=== PATIENT | female | born 1985 | race Caucasian/White ===

== ENCOUNTER 2017-08-26 16:33 | Emergency (ER) | payer BC, MEDICAID ==
--- NOTE | 2017-08-26 17:09 | EDM.PDOC ---
ED HPI GENERAL MEDICAL PROBLEM - General Chief Complaint: UNDER PRESSER Problem Stated Complaint: 15 WEEKS/CRAMPING Time Seen by Provider: 08/26/17 16:44 Source of Information: Reports: Patient History Limitations: Reports: No Limitations - History of Present Illness INITIAL COMMENTS - FREE TEXT/NARRATIVE: HISTORY AND PHYSICAL: History of present illness: Patient is a 32-year-old female who presents to the emergency room today with complaints of abdominal pain and cramping. She is currently 15 weeks and has had adequate OB care prior to today. Her UNDER PRESSER is in [facility]. All of her previous labs and OB checks have been normal. States that this she started to notice mild cramping without any vaginal discharge or bleeding. Decided she wanted to be evaluated in the emergency room as it has progressively come stronger. Denies any recent sexual activity. Denies any nausea, vomiting, diarrhea. 3 para 2 -previous deliveries were normal. Review of systems: As per history of present illness and below otherwise all systems reviewed and negative. Past medical history: As per history of present illness and as reviewed below otherwise noncontributory. Surgical history: As per history of present illness and as reviewed below otherwise noncontributory. Social history: No reported history of drug or alcohol abuse. Family history: As per history of present illness and as reviewed below otherwise noncontributory. Physical exam: Gen.: Nontoxic-appearing 32-year-old female. Alert and oriented. Well-developed and well-nourished. HEENT: Atraumatic, normocephalic, pupils reactive, negative for conjunctival pallor or scleral icterus, mucous membranes moist, throat clear, neck supple, nontender, trachea midline. Lungs: Clear to auscultation, breath sounds equal bilaterally, chest nontender. Heart: S1S2, regular, negative for clicks, rubs, or JVD. Abdomen: Soft, nondistended, nontender. Negative for masses or hepatosplenomegaly. Negative for costovertebral tenderness. Pelvis: Stable nontender. Genitourinary: Deferred. Rectal: Deferred. Extremities: Atraumatic, negative for cords or calf pain. Neurovascular unremarkable. Neuro: Awake, alert, oriented. Cranial nerves II through XII unremarkable. Cerebellum unremarkable. Motor and sensory unremarkable throughout. Exam nonfocal. Diagnostics: CBC, CMP, UA, OB ultrasound Therapeutics: [] Impression: Abdominal pain in second trimester Plan: 1. Please inform your UNDER PRESSER that you were seen in the emergency room today for abdominal pain and cramping. Her labs today are unremarkable and her ultrasound shows an intrauterine . Would advise pelvic rest until otherwise notified by your primary care provider. 2. Follow-up with your primary UNDER PRESSER in the next 1-2 days. Return to the ED as needed and as discussed Definitive disposition and diagnosis as appropriate pending reevaluation and review of above. Onset Date: 08/20/17 abdomen Pain Score (Numeric/FACES): 5 - Related Data Allergies Allergy/AdvReac Type Severity Reaction Status Date / Time adhesive Allergy Rash Verified 07/09/16 09:01 ampicillin Allergy Rash Verified 07/09/16 09:01 grass pollen Allergy Airway Verified 07/09/16 09:01 Tightness raw fruits and vegetables Allergy Airway Uncoded 07/09/16 09:01 Tightness Home Meds: Home Meds Calcium Carbonate [Calcium] 500 mg PO BID 08/26/17 [History] Calcium Carbonate/Vitamin D3 [Oyster Shell Calcium-Vit D Tab] 1 each PO BID 06/04 [History] FLUoxetine [PROzac] 10 mg PO BEDTIME 08/26/17 [History] #103/Iron Fumarate/Fa [ ] 1 tab PO DAILY 08/26/17 [ History] Past Medical History - Past Health History Medical/Surgical History: Denies Medical/Surgical History HEENT History: Reports: Allergic Rhinitis Other HEENT History: wears glasses Cardiovascular History: Reports: None Respiratory History: Reports: Asthma Gastrointestinal History: Reports: None Genitourinary History: Reports: None UNDER PRESSER History: Reports: Musculoskeletal History: Reports: Fracture Other Musculoskeletal History: tailbone Neurological History: Reports: Migraines Psychiatric History: Reports: Depression Endocrine/Metabolic History: Reports: Obesity/BMI 30+, Other (See Below) Other Endocrine/Metabolic History: hypoglycemia Hematologic History: Reports: None Immunologic History: Reports: None Oncologic (Cancer) History: Reports: None Dermatologic History: Reports: None - Past Surgical History Head Surgeries/Procedures: Reports: None Cardiovascular Surgical History: Reports: None Respiratory Surgical History: Reports: None GI Surgical History: Reports: None Female Surgical History: Reports: Section Endocrine Surgical History: Reports: None Neurological Surgical History: Reports: None Musculoskeletal Surgical History: Reports: None, Other (See Below) Other Musculoskeletal Surgeries/Procedures:: knee sx Oncologic Surgical History: Reports: None Dermatological Surgical History: Reports: None Social & Family History - Family History Family Medical History: Noncontributory - Tobacco Use Smoking Status *Q: Never Smoker - Caffeine Use Caffeine Use: Reports: Coffee Caffeine Use Comment: 1 cup daily - Recreational Drug Use Recreational Drug Use: No Drug Use in Last 12 Months: No ED ROS GENERAL - Review of Systems Review Of Systems: ROS reveals no pertinent complaints other than HPI. ED EXAM - Physical Exam Exam: See Below (See dictation) Course - Vital Signs Last Recorded V/S: Last Vital Signs Temp 36.3 C 08/26/17 16:33 Pulse 63 08/26/17 16:33 Resp 18 08/26/17 16:33 BP 116/64 08/26/17 16:33 Pulse Ox 99 08/26/17 16:33 - Orders/Labs/Meds Orders: Active Orders 24 hr Category Date Time Status OB Transvaginal [US] Stat Exams 08/26/17 17:02 Taken Labs: Laboratory Tests 08/26/17 08/26/17 08/26/17 Range/Units 17:03 17:18 17:18 WBC 8.70 (4.0-11.0) K/uL RBC 4.17 L (4.30-5.90) M/uL Hgb 12.9 (12.0-16.0) g/dL Hct 38.1 (36.0-46.0) % MCV 91.4 (80.0-98.0) fL MCH 30.9 (27.0-32.0) pg MCHC 33.9 (31.0-37.0) g/dL RDW Std Deviation 42.7 (28.0-62.0) fl RDW Coeff of Gabriela 13 (11.0-15.0) % Plt Count 197 (150-400) K/uL MPV 9.30 (7.40-12.00) fL Neut % (Auto) 65.2 (48.0-80.0) % Lymph % (Auto) 27.7 (16.0-40.0) % [place] % (Auto) 5.9 (0.0-15.0) % Eos % (Auto) 1.0 (0.0-7.0) % Baso % (Auto) 0.2 (0.0-1.5) % Neut # (Auto) 5.7 (1.4-5.7) K/uL Lymph # (Auto) 2.4 (0.6-2.4) K/uL [place] # (Auto) 0.5 (0.0-0.8) K/uL Eos # (Auto) 0.1 (0.0-0.7) K/uL Baso # (Auto) 0.0 (0.0-0.1) K/uL Nucleated RBC % 0.0 /100WBC Nucleated RBCs # 0 K/uL Sodium 137 (136-146) mmol/L Potassium 3.6 (3.5-5.1) mmol/L Chloride 106 (98-110) mmol/L Carbon Dioxide 24 (21-31) mmol/L BUN 9 (6.0-23.0) mg/dL Creatinine 0.7 (0.6-1.5) mg/dL Est Cr Clr Drug Dosing 119.46 mL/min Estimated GFR (MDRD) > 60.0 ml/min Glucose 75 (60-110) mg/dL Calcium 8.8 (8.8-10.8) mg/dL Total Bilirubin 0.2 (0.1-1.5) mg/dL AST 15 (5-40) IU/L ALT 17 (8-54) IU/L Alkaline Phosphatase 52 (40-150) Total Protein 6.6 (6.0-8.0) g/dL Albumin 3.5 (3.5-5.0) g/dL Globulin 3.1 (2.0-3.5) g/dL Albumin/Globulin Ratio 1.1 L (1.3-2.8) Urine Color YELLOW Urine Appearance CLEAR Urine pH 6.0 (5.0-8.0) Ur Specific Yoder 1.010 (1.001-1.035) Urine Protein NEGATIVE (NEGATIVE) mg/dL Urine Glucose (UA) NEGATIVE (NEGATIVE) mg/dL Urine Ketones NEGATIVE (NEGATIVE) mg/dL Urine Occult Blood TRACE-INTACT (NEGATIVE) Urine Nitrite NEGATIVE (NEGATIVE) Urine Bilirubin NEGATIVE (NEGATIVE) Urine Urobilinogen 0.2 (<2.0) EU/dL Ur Leukocyte Esterase TRACE (NEGATIVE) Urine RBC 0-1 (0-2/HPF) Urine WBC 0-3 (0-5/HPF) Ur Epithelial Cells FEW (NONE-FEW) Urine Bacteria FEW (NEGATIVE) Departure - Departure Time of Disposition: 18:34 Disposition: Home, Self-Care 01 Clinical Impression: Abdominal pain during in second trimester - Discharge Information Referrals: PCP,None [Primary Care Provider] - Forms: ED Department Discharge Additional Instructions: My general discharge The following information is given to patients seen in the emergency department who are being discharged to home. This information is to outline your options for follow-up care. We provide all patients seen in our emergency department with a follow-up referral. The need for follow-up, as well as the timing and circumstances, are variable depending upon the specifics of your emergency department visit. If you don't have a primary care physician on staff, we will provide you with a referral. We always advise you to contact your personal physician following an emergency department visit to inform them of the circumstance of the visit and for follow-up with them and/or the need for any referrals to a consulting specialist. The emergency department will also refer you to a specialist when appropriate. This referral assures that you have the opportunity for follow-up care with a specialist. All of these measure are taken in an effort to provide you with optimal care, which includes your follow-up. Under all circumstances we always encourage you to contact your private physician who remains a resource for coordinating your care. When calling for follow-up care, please make the office aware that this follow-up is from your recent emergency room visit. If for any reason you are refused follow-up, please contact the [facility] Emergency Department at and asked to speak to the emergency department charge nurse. [facility] Primary Care - Women's Health [address] [place] [id number] 1. Please inform your UNDER PRESSER that you were seen in the emergency room today for abdominal pain and cramping. Her labs today are unremarkable and her ultrasound shows an intrauterine . Would advise pelvic rest until otherwise notified by your primary care provider. 2. Follow-up with your primary UNDER PRESSER in the next 1-2 days. Return to the ED as needed and as discussed - My Orders Last 24 Hours: My Active Orders 08/26/17 17:02 OB Transvaginal [US] Stat - Assessment/Plan Last 24 Hours: My Active Orders 08/26/17 17:02 OB Transvaginal [US] Stat
[2017-08-26 17:57] LABS: CHLORIDE,CL 106 mmol/L (98-110); SODIUM,NA 137 mmol/L (136-146)
[2017-08-26 18:53] VITALS: BP 106/62
--- NOTE | 2017-08-27 12:56 | US ---
EXAM DATE: 08/26/17 PATIENT'S AGE: 32 Patient: RODERICK BOO Facility: [place], [place] Site . Site : 1985 Study: US OB Pelvis [id number]/8/2017 6:20:07 PM Ordering Physician: Doctor De Los Santos Final Report: INDICATION: Cramping TECHNIQUE: Ultrasound OB pelvis transabdominal. Real time camacho scale imaging of the fetus was performed as well as color Doppler and spectral Doppler analysis of the umbilical artery. COMPARISON: None FINDINGS: LMP: 05/14/2017 Gestational age by LMP: 14 weeks 6 days Estimated due date by LMP: 02/18/2018 Sonographic imaging demonstrates a single living intrauterine gestation. Fetus demonstrates a regular cardiac rate of 146 beats per minute. The placenta lies posterior without evidence of placenta previa. Amniotic fluid volume appears normal MARCELLE not measured. Cervix measures 3.89 centimeters in length. The composite ultrasound gestational age is calculated at 15 weeks 2 days with an estimated sonographic due date of 02/15/2018. The estimated weight is 114 grams. The following biometric measurements were obtained: Biparietal diameter: 2.8 centimeters consistent with gestational age of 15 weeks 1 day Head circumference: 10.65 centimeters consistent with gestational age of 15 weeks 1 day Abdominal circumference: 8.62 centimeters consistent with gestational age of 15 weeks 0 days Femur length: 1.76 centimeters consistent with gestational age of 15 weeks 2 days Anatomical survey not requested. IMPRESSION: Single intrauterine with a composite gestational age by ultrasound evaluation of 15 weeks 2 days. This compares the gestational age by LMP of 14 weeks 6 days. heart rate 146 beats per minute. No gross abnormalities. Dictated by Pool Hyman MD @ 08/26/2017 6:40:22 PM Dictated by: Pool Hyman MD @ 08/26/2017 18:40:42 (Electronic Signature) Report Signed by Proxy. NATALIE
== END 2017-08-26 18:53 | disposition home or self-care (01) ==
LOC: MW.ED 16:33
DX: O99.89 Other specified diseases and conditions complicating pregnancy, childbirth and the puerperium (principal); R10.9 Unspecified abdominal pain; O99.342 Other mental disorders complicating pregnancy, second trimester; F32.9 Major depressive disorder, single episode, unspecified; Z88.1 Allergy status to other antibiotic agents; Z91.018 Allergy to other foods; Z91.048 Other nonmedicinal substance allergy status; Z3A.15 15 weeks gestation of pregnancy
CPT/HCPCS: 36415; 76817; 76817-26; 80053; 81001; 85025; 99283; 99284-25

== ENCOUNTER 2018-02-11 05:33 | Inpatient (IN) | payer BC ==
[2018-02-11] MEDS ORDERED: Sodium Chloride 0.9% 10 ML Syringe FLUSH PRN (06:09)
[2018-02-11] MEDS ORDERED: Sodium Chloride 0.9% 2.5 ML Syringe FLUSH PRN (06:09)
[2018-02-11] MEDS ORDERED: ceFAZolin 2 GM in Premix Bag 1 BAG IV ONE (06:09)
[2018-02-11] MEDS ORDERED: Oxytocin/0.9 % Sodium Chloride 30 UNIT/500 ML BAG IV SCH (06:15)
[2018-02-11] MEDS ORDERED: Citric Acid/Sodium Citrate Solution 30 ML Cup PO ONE (06:15)
[2018-02-11] MEDS: Lactated Ringers 1,000 ML IV SCH ×2 (06:20→07:25)
[2018-02-11] MEDS ORDERED: Octyl 2-Cyanoacrylate 1 Tube ONE (07:18)
[2018-02-11] MEDS ORDERED: Ondansetron 4 MG/2 ML SDV ONE (07:23)
[2018-02-11] MEDS ORDERED: Morphine PF 1 MG/ML Amp ONE (07:24)
[2018-02-11] MEDS ORDERED: ceFAZolin/Dextrose,Iso-Osmotic 2 GM/50 ML Duplex Bag IV ONE (07:24)
[2018-02-11] MEDS ORDERED: Oxytocin/0.9 % Sodium Chloride 30 UNIT/500 ML BAG ONE (07:45)
--- NOTE | 2018-02-11 08:04 | PCM.PREANE ---
Preanesthetic Assessment - Anesthesia/Transfusion/Family Hx Anesthesia History: Prior Anesthesia Without Reaction Transfusion History: No Prior Transfusion(s) - Review of Systems General: No Symptoms Pulmonary: No Symptoms Cardiovascular: No Symptoms Gastrointestinal: No Symptoms Neurological: No Symptoms Other: Reports: None - Physical Assessment NPO Status Date: 02/10/18 Height: 1.75 m Weight: 127.913 kg ASA Class: 2 Airway Class: Mallampati = 2 Dentition: Reports: Normal Dentition ROM/Head Extension: Full Lungs: Clear to Auscultation, Normal Respiratory Effort Cardiovascular: Regular Rate, Regular Rhythm - Lab Values: Laboratory Last Values WBC 9.90 K/uL (4.0-11.0) 02/10/18 09:45 RBC 4.03 M/uL (4.30-5.90) L 02/10/18 09:45 Hgb 12.1 g/dL (12.0-16.0) 02/10/18 09:45 Hct 35.7 % (36.0-46.0) L 02/10/18 09:45 MCV 88.6 fL (80.0-98.0) 02/10/18 09:45 MCH 30.0 pg (27.0-32.0) 02/10/18 09:45 MCHC 33.9 g/dL (31.0-37.0) 02/10/18 09:45 RDW Std Deviation 43.5 fl (28.0-62.0) 02/10/18 09:45 RDW Coeff of Gabriela 14 % (11.0-15.0) 02/10/18 09:45 Plt Count 176 K/uL (150-400) 02/10/18 09:45 MPV 10.00 fL (7.40-12.00) 02/10/18 09:45 Nucleated RBC % 0.0 /100WBC 02/10/18 09:45 Nucleated RBCs # 0 K/uL 02/10/18 09:45 Blood Type A NEGATIVE 02/10/18 09:45 Antibody Screen NEGATIVE 02/10/18 09:45 - Allergies Allergies/Adverse Reactions: Allergies Allergy/AdvReac Type Severity Reaction Status Date / Time ampicillin Allergy Rash Verified 02/08/18 10:55 grass pollen Allergy Airway Verified 02/08/18 10:55 Tightness lactose Allergy Stomach Verified 02/08/18 10:55 Upset raw fruits and vegetables Allergy Airway Uncoded 07/09/16 09:01 Tightness - Anesthesia Plan Pre-Op Medication Ordered: Antacids - Acknowledgements Anesthesia Type Planned: Spinal Pt an Appropriate Candidate for the Planned Anesthesia: Yes Alternatives and Risks of Anesthesia Discussed w Pt/Guardian: Yes Pt/Guardian Understands and Agrees with Anesthesia Plan: Yes PreAnesthesia Questionnaire - Past Health History Medical/Surgical History: Denies Medical/Surgical History HEENT History: Reports: Allergic Rhinitis, Other (See Below) Other HEENT History: wears glasses Cardiovascular History: Reports: None Respiratory History: Reports: Asthma Gastrointestinal History: Reports: Other (See Below) Other Gastrointestinal History: heartburn during Genitourinary History: Reports: None 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: Musculoskeletal History: Reports: Fracture Other Musculoskeletal History: tailbone Neurological History: Reports: Migraines Psychiatric History: Reports: Depression Endocrine/Metabolic History: Reports: Obesity/BMI 30+, Other (See Below) Other Endocrine/Metabolic History: hypoglycemia Hematologic History: Reports: Anemia Immunologic History: Reports: None Oncologic (Cancer) History: Reports: None Dermatologic History: Reports: None - Past Surgical History Head Surgeries/Procedures: Reports: None HEENT Surgical History: Reports: None Cardiovascular Surgical History: Reports: None Respiratory Surgical History: Reports: None GI Surgical History: Reports: None Female Surgical History: Reports: Section Endocrine Surgical History: Reports: None Neurological Surgical History: Reports: None Musculoskeletal Surgical History: Reports: Arthroscopic Knee, Other (See Below) Other Musculoskeletal Surgeries/Procedures:: knee scope, excision of mass to rt ankle Oncologic Surgical History: Reports: None Dermatological Surgical History: Reports: None - SUBSTANCE USE Smoking Status *Q: Former Smoker Tobacco Use Within Last Twelve Months: Cigarettes Second Hand Smoke Exposure: No Recreational Drug Use History: No - HOME MEDS Home Medications: Home Meds Calcium Carbonate/Vitamin D3 [Oyster Shell Calcium-Vit D Tab] 1 each PO BID 06/04 [History] FLUoxetine [PROzac] 10 mg PO BEDTIME 08/26/17 [History] #103/Iron Fumarate/Fa [ ] 1 tab PO DAILY 08/26/17 [ History] Albuterol [Ventolin HFA] 2 puff INH ASDIRECTED PRN 02/08/18 [History] Magnesium Oxide [Magnesium] 1 tab PO BID 02/08/18 [History] - CURRENT (IN HOUSE) MEDS Current Meds: Current Medications Lactated Ringer's (Ringers, Lactated) 1,000 mls @ 500 mls/hr IV .BOLUS DANAY Last Admin: 02/11/18 07:25 Dose: 500 mls/hr Oxytocin/Sodium Chloride (Oxytocin 30 Unit/500 Ml-Ns) 30 unit in 500 mls @ 250 mls/hr IV TITRATE DANAY Sodium Chloride (Saline Flush) 10 ml FLUSH ASDIRECTED PRN PRN Reason: Keep Vein Open Sodium Chloride (Saline Flush) 2.5 ml FLUSH ASDIRECTED PRN PRN Reason: Keep Vein Open Discontinued Medications Cefazolin Sodium/Dextrose (Ancef) Confirm Administered Dose 2 gm IV .STK-MED ONE Stop: 02/11/18 07:25 Citric Acid/Sodium Citrate (Bicitra Solution) 30 ml PO ONETIME ONE Stop: 02/11/18 06:16 Last Admin: 02/11/18 07:51 Dose: 30 ml Cefazolin Sodium/Dextrose 2 gm (/ Premix) 50 mls @ 100 mls/hr IV ONETIME ONE Stop: 02/11/18 06:38 Oxytocin/Sodium Chloride (Oxytocin 30 Unit/500 Ml-Ns) Confirm Administered Dose 30 unit in 500 mls @ as directed .ROUTE .STK-MED ONE Stop: 02/11/18 07:46 Morphine Sulfate (Duramorph Pf) Confirm Administered Dose 1 mg .ROUTE .STK-MED ONE Stop: 02/11/18 07:25 Octyl Cyanoacrylate (Dermabond Advance) Confirm Administered Dose 1 applic .ROUTE .STK-MED ONE Stop: 02/11/18 07:19 Ondansetron HCl (Zofran) Confirm Administered Dose 4 mg .ROUTE .STK-MED ONE Stop: 02/11/18 07:24
[2018-02-11] MEDS ORDERED: ePHEDrine 50 MG/ML SDV ONE (08:14)
[2018-02-11] MEDS ORDERED: Phenylephrine/Normal Saline 100 MCG/ML 10 ML Syringe ONE (08:14)
[2018-02-11] MEDS ORDERED: Methylergonovine 0.2 MG/1 ML Amp ONE (08:19)
[2018-02-11] MEDS ORDERED: Oxytocin 10 Units/1 ML SDV ONE (08:50)
[2018-02-11] MEDS ORDERED: Bisacodyl 10 MG Supp RECTAL PRN (08:55)
[2018-02-11] MEDS ORDERED: Ondansetron 4 MG/2 ML SDV IV PRN (08:55)
[2018-02-11] MEDS ORDERED: Methylergonovine 0.2 MG/1 ML Amp IM PRN (08:55)
[2018-02-11] MEDS ORDERED: Lanolin 100% Cream 7 GM Tube TOP PRN (08:55)
[2018-02-11] MEDS ORDERED: diphenhydrAMINE 50 MG/ML SDV IVPUSH PRN ×2 (08:55→18:19)
[2018-02-11] MEDS ORDERED: Lactated Ringers 1,000 ML IV SCH (09:00)
--- NOTE | 2018-02-11 09:00 | PCM.OPNOTE ---
- General Post-Op/Procedure Note Date of Surgery/Procedure: 02/11/18 Operative Procedure(s): RLTCS with bilateral salpingectomy (approved) Findings: Viable female, apgars 8 & 9, weight: 4000 g, delivery of intact 3V cord & placenta. Pre Op Diagnosis: Repeat , desires sterilization Post-Op Diagnosis: same Anesthesia Technique: Spinal Primary Surgeon: Tamika Melton Cash Surrender Calculator: Mahnaz Lynch Fluid Replacement, Intraop: 2,000 Output, Urine Amount: 300 EBL in mLs: 700 Condition: Stable
--- NOTE | 2018-02-11 09:08 | PCM.OPNOTE ---
- General Post-Op/Procedure Note Date of Surgery/Procedure: 02/11/18 Operative Procedure(s): RLTSC, bilateral salpingectomy (approved) Findings: viable female, apgars 8 & 9, weight: 4000 g, delivery of intact 3V cord & placenta. Pre Op Diagnosis: 39 week intrauterine , repeat , desires sterilization. Post-Op Diagnosis: same Anesthesia Technique: Spinal Primary Surgeon: Tamika Melton Business Planning Manager: Mahnaz Lynch Fluid Replacement, Intraop: 2,000 Output, Urine Amount: 300 EBL in mLs: 700 Complications: none known
--- NOTE | 2018-02-11 09:37 | PCM.POSTAN ---
POST ANESTHESIA ASSESSMENT - MENTAL STATUS Mental Status: Alert, Oriented - RESPIRATORY Respiratory Status: Respiratory Rate WNL, Airway Patent, O2 Saturation Stable - CARDIOVASCULAR CV Status: Pulse Rate WNL, Blood Pressure Stable - GASTROINTESTINAL GI Status: No Symptoms - POST OP HYDRATION Hydration Status: Adequate & Stable
[2018-02-11] MEDS: Docusate Sodium 100 MG Cap PO SCH ×2 (10:23→21:38)
[2018-02-11] MEDS: Prenatal Multivitamin and Multimineral with Iron Tab PO SCH (10:23)
--- NOTE | 2018-02-11 12:11 | OR ---
SURGEON: Tamika Melton M.D. DATE OF PROCEDURE: 02/11/2018 PREOPERATIVE DIAGNOSES: A 39 week intrauterine , prior delivery, and desires sterilization. POSTOPERATIVE DIAGNOSES: A 39 week intrauterine , prior delivery, and desires sterilization. PROCEDURE: Repeat low transverse section with bilateral salpingectomy. SURGEON: Tamika Melton M.D. TOOL AND DIE MANAGER: SU Novak. ANESTHESIA: Epidural. ESTIMATED BLOOD LOSS: 700 mL. FLUIDS: 2000 mL crystalloid. FINDINGS: Liveborn female, score 8 and 9. Weight 4000 g. Normal-appearing uterus, tubes, and ovaries with some paratubal cysts on the fimbria. COMPLICATIONS: None known. DISPOSITION: Stable to recovery. BRIEF HISTORY: This is a 32-year-old female, -0-0-2, with prior delivery. She requests a repeat with risks discussed including bleeding, infection, injury to bowel, bladder, blood vessels, or other organs, risk of thromboembolic event, and risk of anesthesia. Understanding these risks, she does desire to proceed with a repeat delivery. She has also requested permanent sterilization by bilateral salpingectomy. Understanding this is permanent and irreversible. 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 Throughout the , she has had significant lower extremity swelling. Risks of the salpingectomy were discussed including risk of bleeding and risk of regret. Additionally, she has been offered alternative for the contraception including highly reliable, reversible contraception and she does decline. DESCRIPTION OF PROCEDURE: The patient in the left tilt position, under adequate spinal analgesia, the abdomen was prepped with chlorhexidine and draped in usual fashion for abdominal surgery. SCDs were in place. She received 2 g of Ancef IV and an appropriate time-out was held. Documentation of adequate analgesia was performed, the prior cicatrix was excised using a scalpel, and the incision was carried through the subcutaneous tissue to the fascia, which was scored transversely in the midline. The fascial incision was extended laterally using curved Mason scissors. The fascia was elevated from the underlying rectus muscle using sharp and blunt dissection. The rectus muscles were bluntly in the midline. A finger was used to enter the peritoneal cavity. There was note of omental adhesions to the anterior abdominal wall. These were lysed using electrocautery. The rectus muscles were further and the peritoneal incision was extended using sharp and blunt dissection. The Obed O retractor was placed. The visceroperitoneum over the lower uterine segment was incised and developed an adequate bladder flap. A transverse curvilinear incision was made over the lower uterine segment with a scalpel and a finger was used to enter the amniotic cavity. Clear fluid was noted. The incision was extended using blunt dissection in the cephalad and caudad manner. The head was delivered via the uterine incision without any difficulty with subsequent delivery of the infant's shoulders and body. The infant was bulb suctioned by nose and mouth and the cord was clamped x2 and cut and handed to the nurse in attendance at delivery. The is a liveborn female, score 8 and 9. Weight 4000 g. Cord blood was collected for cord ABGs as well as routine cord blood sampling. The placenta was removed by manual extraction. Pitocin was given after delivery of the infant and the uterus contracted nicely. The uterus was cleaned with a dry laparotomy tape. The cervix was opened with a ring forceps. The uterine incision was closed with a running lock suture of 0 Polysorb followed by an imbricating layer of 0 Polysorb. Posterior cul-de-sac pericolic gutters were cleaned and irrigated. The left tube was grasped with a Mcdonough and the tubo- ovarian ligament was cross clamped, and ligated using the Harmonic wave at a setting of three and proceeding proximally along the mesosalpinx to the proximal tube, which was then transected, this was sent for pathology. This was repeated on the opposite side. Confirmation of hemostasis was performed. Any areas of concern were coagulated with grasping with a hemostat and applying electrocautery. Both mesosalpinges were completely hemostatic. Upon repeated evaluation, the uterine incision was hemostatic, therefore the Obed O C- section retractor was removed. The peritoneum and rectus muscle were loosely approximated in the midline using a running mattress suture of 0 Polysorb. The posterior aspect of the fascia was carefully inspected. Any areas of bleeding that were noted were cauterized. The fascial incision was closed with a running suture of 0 Polysorb. Subcutaneous tissue was copiously irrigated and any areas of bleeding that were noted were cauterized. The deep subcutaneous tissue was reapproximated with a running suture of 3-0 plain. The skin was reapproximated with a running subcuticular suture of 3-0 Caprosyn and the skin was covered with Dermabond. Final sponge, needle, and instrument counts were reported as correct. There were no known complications. Mother remains in recovery in good condition. Shipman is in full-term nursery in good condition. ROCCO / ANGELA /[id number]
[2018-02-11] MEDS ORDERED: Nalbuphine 10 MG/1 ML Vial IVPUSH PRN (18:19)
[2018-02-11] MEDS ORDERED: Naloxone 0.4 MG/ML Syringe IVPUSH PRN (18:19)
[2018-02-11] MEDS: Acetaminophen/oxyCODONE 325-5 MG Tab PO PRN (19:55)
[2018-02-11] MEDS: Enoxaparin 40 MG/0.4 ML Syringe SUBCUT SCH (21:39)
--- NOTE | 2018-02-11 21:59 | PCM48HPAN ---
Post Anesthesia Note - EVALUATION WITHIN 48HRS OF ANESTHETIC Vital Signs in Normal Range: Yes Patient Participated in Evaluation: Yes Respiratory Function Stable: Yes Airway Patent: Yes Cardiovascular Function Stable: Yes Hydration Status Stable: Yes Pain Control Satisfactory: Yes Nausea and Vomiting Control Satisfactory: Yes Mental Status Recovered: Yes Resp Rate: 16
[2018-02-11] MEDS: Ibuprofen 800 MG Tab PO PRN (22:34)
[2018-02-12] MEDS: Acetaminophen/oxyCODONE 325-5 MG Tab PO PRN ×5 (01:22→23:00)
[2018-02-12] MEDS: Ibuprofen 800 MG Tab PO PRN (07:33)
--- NOTE | 2018-02-12 08:14 | PCM.PNPP ---
<Lizbeth Nelson - Last Filed: 02/12/18 08:11> - General Info Date of Service: 02/12/18 Functional Status: Reports: Pain Controlled, Tolerating Diet, Ambulating, Urinating - Review of Systems General: Denies: Fever, Weakness, Fatigue Pulmonary: Denies: Shortness of Breath, Pleuritic Chest Pain, Cough Cardiovascular: Denies: Chest Pain, Palpitations, Dyspnea on Exertion Gastrointestinal: Denies: Abdominal Pain Genitourinary: Denies: Dysuria - General Info Date of Service: 02/12/18 - Patient Data Vital Signs - Most Recent: Last Vital Signs Temp 35.9 C 02/12/18 00:00 Pulse 66 02/12/18 05:00 Resp 16 02/12/18 06:00 BP 93/53 L 02/12/18 05:00 Pulse Ox 96 02/12/18 06:00 Weight - Most Recent: 127.913 kg I&O - Last 24 Hours: Intake & Output 02/11/18 02/12/18 02/12/18 22:59 06:59 14:59 Intake Total 480 1100 Output Total 1000 3350 Balance -520 -2250 Lab Results - Last 24 Hours: Laboratory Results - last 24 hr 02/11/18 02/11/18 02/12/18 Range/Units 08:18 09:52 05:07 Hgb 10.6 L (12.0-16.0) g/dL Hct 31.3 L (36.0-46.0) % Cord ABG pH 7.308 (7.18-7.38) Cord ABG Base Excess -1 H (-10--2) Cord VBG pH 7.339 (7.25-7.45) Cord VBG Base Excess -2 (-10--2) Rhogam Indicated NO, MOM+BABY RH NEG Med Orders - Current: Current Medications Bisacodyl (Dulcolax) 10 mg RECTAL .ONCE PRN PRN Reason: Constipation Diphenhydramine HCl (Benadryl) 25 mg IVPUSH Q6H PRN PRN Reason: Itching or Nausea Last Admin: 02/11/18 09:34 Dose: 25 mg Diphenhydramine HCl (Benadryl) 25 mg IVPUSH Q4H PRN PRN Reason: Itching Stop: 02/12/18 18:20 Docusate Sodium (Colace) 100 mg PO BID [facility] Last Admin: 02/11/18 21:38 Dose: 100 mg Emollient Ointment (Lansinoh Hpa) 0 gm TOP ASDIRECTED PRN PRN Reason: Sore Nipples Enoxaparin Sodium (Lovenox) 40 mg SUBCUT Q24H [facility] Last Admin: 02/11/18 21:39 Dose: 40 mg Fluoxetine HCl (Prozac) 10 mg PO BEDTIME [facility] Last Admin: 02/11/18 21:40 Dose: 10 mg Lactated Ringer's (Ringers, Lactated) 1,000 mls @ 125 mls/hr IV ASDIRECTED [facility] Last Admin: 02/11/18 12:25 Dose: 125 mls/hr Ibuprofen (Motrin) 800 mg PO Q8H PRN PRN Reason: Pain Last Admin: 02/12/18 07:33 Dose: 800 mg Methylergonovine Maleate (Methergine) 0.2 mg IM .ONCE PRN PRN Reason: Excessive Vaginal Bleeding Nalbuphine HCl (Nubain) 5 mg IVPUSH Q3H PRN PRN Reason: Pruritis Stop: 02/12/18 18:20 Last Admin: 02/11/18 19:56 Dose: 5 mg Naloxone HCl (Narcan) 0.1 mg IVPUSH ONETIME PRN PRN Reason: Respiratory Depression Stop: 02/12/18 18:20 Ondansetron HCl (Zofran) 4 mg IV Q4H PRN PRN Reason: Nausea/Vomiting Oxycodone HCl (Oxycodone) 5 mg PO Q3H PRN PRN Reason: Breakthrough Pain Oxycodone/Acetaminophen (Percocet 325-5 Mg) 1 tab PO Q4H PRN PRN Reason: Pain (moderate 4-6) Last Admin: 02/12/18 07:35 Dose: 1 tab Oxycodone/Acetaminophen (Percocet 325-5 Mg) 2 tab PO Q4H PRN PRN Reason: Pain (moderate 4-6) Last Admin: 02/11/18 19:55 Dose: 2 tab Prenat Multivit/Digital Strategy Manager/Iron/Folic Ac ( Mtr) 1 each PO DAILY [facility] Last Admin: 02/11/18 10:23 Dose: Not Given Discontinued Medications Cefazolin Sodium/Dextrose (Ancef) Confirm Administered Dose 2 gm IV .STK-MED ONE Stop: 02/11/18 07:25 Citric Acid/Sodium Citrate (Bicitra Solution) 30 ml PO ONETIME ONE Stop: 02/11/18 06:16 Last Admin: 02/11/18 07:49 Dose: 30 ml Ephedrine Sulfate (Ephedrine Sulfate) Confirm Administered Dose 50 mg .ROUTE .STK-MED ONE Stop: 02/11/18 08:15 Cefazolin Sodium/Dextrose 2 gm (/ Premix) 50 mls @ 100 mls/hr IV ONETIME ONE Stop: 02/11/18 06:38 Last Admin: 02/11/18 10:22 Dose: Not Given Lactated Ringer's (Ringers, Lactated) 1,000 mls @ 500 mls/hr IV .BOLUS DANAY Last Admin: 02/11/18 07:25 Dose: 500 mls/hr Oxytocin/Sodium Chloride (Oxytocin 30 Unit/500 Ml-Ns) 30 unit in 500 mls @ 250 mls/hr IV TITRATE DANAY Oxytocin/Sodium Chloride (Oxytocin 30 Unit/500 Ml-Ns) Confirm Administered Dose 30 unit in 500 mls @ as directed .ROUTE .[facility]-MED ONE Stop: 02/11/18 07:46 Last Admin: 02/11/18 10:22 Dose: Not Given Methylergonovine Maleate (Methergine) Confirm Administered Dose 0.2 mg .ROUTE .STK-MED ONE Stop: 02/11/18 08:20 Morphine Sulfate (Duramorph Pf) Confirm Administered Dose 1 mg .ROUTE .STK-MED ONE Stop: 02/11/18 07:25 Octyl Cyanoacrylate (Dermabond Advance) Confirm Administered Dose 1 applic .ROUTE .STK-MED ONE Stop: 02/11/18 07:19 Ondansetron HCl (Zofran) Confirm Administered Dose 4 mg .ROUTE .ST-MED ONE Stop: 02/11/18 07:24 Oxytocin (Pitocin) Confirm Administered Dose 20 unit .ROUTE .STK-MED ONE Stop: 02/11/18 08:51 Phenylephrine HCl (Phenylephrine In Ns 100 Mcg/Ml) Confirm Administered Dose 1 mg .ROUTE .STK-MED ONE Stop: 02/11/18 08:15 Sodium Chloride (Saline Flush) 10 ml FLUSH ASDIRECTED PRN PRN Reason: Keep Vein Open Sodium Chloride (Saline Flush) 2.5 ml FLUSH ASDIRECTED PRN PRN Reason: Keep Vein Open - Interaction Infant Disposition, : [place] in Room with Family Infant Feeding: Attempted ; Nursed Fair/Poor Support Person: - Recovery Exam Fundal Tone: Firm Fundal Level: At Umbilicus Fundal Placement: Midline Lochia Amount: Scant Lochia Color: Rubra/Red Perineum Description: Intact, Minimal Bruising/Swelling Episiotomy/Laceration: None Bladder Status: Indwelling Catheter in Place Urinary Elimination: Indwelling Catheter - Exam General: Alert, Oriented Neck: Supple Lungs: Clear to Auscultation, Normal Respiratory Effort Cardiovascular: Regular Rate, Regular Rhythm GI/Abdominal Exam: Normal Bowel Sounds, Soft, No Distention Extremities: Normal Inspection, Pedal Edema (1+) Skin: Warm, Dry, Intact - Problem List & Annotations (1) delivery delivered SNOMED Code(s): 693148014 Code(s): O82 - ENCOUNTER FOR DELIVERY WITHOUT INDICATION Status: Acute Current Visit: Yes - Problem List Review Problem List Initiated/Reviewed/Updated: Yes - Assessment Assessment:: POD#1 s/p RLTCS with bilateral salpingectomy. Minimal pain and lochia. Work on breast feeding today. Anticipate discharge home tomorrow. - Plan Plan:: Continue routine post-op cares. Anticipate discharge home tomorrow. <Tamika Melton - Last Filed: 02/12/18 13:20> - Patient Data Vital Signs - Most Recent: Last Vital Signs Temp 35.9 C 02/12/18 00:00 Pulse 69 02/12/18 08:00 Resp 15 02/12/18 08:00 BP 98/62 02/12/18 08:00 Pulse Ox 99 02/12/18 08:00 I&O - Last 24 Hours: Intake & Output 02/11/18 02/12/18 02/12/18 22:59 06:59 14:59 Intake Total 480 1100 Output Total 1000 3350 Balance -520 -2250 Lab Results - Last 24 Hours: Laboratory Results - last 24 hr 02/12/18 Range/Units 05:07 Hgb 10.6 L (12.0-16.0) g/dL Hct 31.3 L (36.0-46.0) % Med Orders - Current: Current Medications Bisacodyl (Dulcolax) 10 mg RECTAL .ONCE PRN PRN Reason: Constipation Diphenhydramine HCl (Benadryl) 25 mg IVPUSH Q6H PRN PRN Reason: Itching or Nausea Last Admin: 02/11/18 09:34 Dose: 25 mg Diphenhydramine HCl (Benadryl) 25 mg IVPUSH Q4H PRN PRN Reason: Itching Stop: 02/12/18 18:20 Docusate Sodium (Colace) 100 mg PO BID [facility] Last Admin: 02/12/18 09:27 Dose: 100 mg Emollient Ointment (Lansinoh Hpa) 0 gm TOP ASDIRECTED PRN PRN Reason: Sore Nipples Enoxaparin Sodium (Lovenox) 40 mg SUBCUT Q24H [facility] Last Admin: 02/11/18 21:39 Dose: 40 mg Fluoxetine HCl (Prozac) 10 mg PO BEDTIME [facility] Last Admin: 02/11/18 21:40 Dose: 10 mg Lactated Ringer's (Ringers, Lactated) 1,000 mls @ 125 mls/hr IV ASDIRECTED [facility] Last Admin: 02/11/18 12:25 Dose: 125 mls/hr Ibuprofen (Motrin) 800 mg PO Q8H PRN PRN Reason: Pain Last Admin: 02/12/18 07:33 Dose: 800 mg Methylergonovine Maleate (Methergine) 0.2 mg IM .ONCE PRN PRN Reason: Excessive Vaginal Bleeding Nalbuphine HCl (Nubain) 5 mg IVPUSH Q3H PRN PRN Reason: Pruritis Stop: 02/12/18 18:20 Last Admin: 02/11/18 19:56 Dose: 5 mg Naloxone HCl (Narcan) 0.1 mg IVPUSH ONETIME PRN PRN Reason: Respiratory Depression Stop: 02/12/18 18:20 Ondansetron HCl (Zofran) 4 mg IV Q4H PRN PRN Reason: Nausea/Vomiting Oxycodone HCl (Oxycodone) 5 mg PO Q3H PRN PRN Reason: Breakthrough Pain Oxycodone/Acetaminophen (Percocet 325-5 Mg) 1 tab PO Q4H PRN PRN Reason: Pain (moderate 4-6) Last Admin: 02/12/18 07:35 Dose: 1 tab Oxycodone/Acetaminophen (Percocet 325-5 Mg) 2 tab PO Q4H PRN PRN Reason: Pain (moderate 4-6) Last Admin: 02/12/18 13:11 Dose: 2 tab Prenat Multivit/Digital Strategy Manager/Iron/Folic Ac ( Mtr) 1 each PO DAILY [facility] Last Admin: 02/12/18 09:27 Dose: 1 each Discontinued Medications Cefazolin Sodium/Dextrose (Ancef) Confirm Administered Dose 2 gm IV .STK-MED ONE Stop: 02/11/18 07:25 Citric Acid/Sodium Citrate (Bicitra Solution) 30 ml PO ONETIME ONE Stop: 02/11/18 06:16 Last Admin: 02/11/18 07:49 Dose: 30 ml Ephedrine Sulfate (Ephedrine Sulfate) Confirm Administered Dose 50 mg .ROUTE .STK-MED ONE Stop: 02/11/18 08:15 Cefazolin Sodium/Dextrose 2 gm (/ Premix) 50 mls @ 100 mls/hr IV ONETIME ONE Stop: 02/11/18 06:38 Last Admin: 02/11/18 10:22 Dose: Not Given Lactated Ringer's (Ringers, Lactated) 1,000 mls @ 500 mls/hr IV .BOLUS [facility] Last Admin: 02/11/18 07:25 Dose: 500 mls/hr Oxytocin/Sodium Chloride (Oxytocin 30 Unit/500 Ml-Ns) 30 unit in 500 mls @ 250 mls/hr IV TITRATE DANAY Oxytocin/Sodium Chloride (Oxytocin 30 Unit/500 Ml-Ns) Confirm Administered Dose 30 unit in 500 mls @ as directed .ROUTE .STK-MED ONE Stop: 02/11/18 07:46 Last Admin: 02/11/18 10:22 Dose: Not Given Methylergonovine Maleate (Methergine) Confirm Administered Dose 0.2 mg .ROUTE .STK-MED ONE Stop: 02/11/18 08:20 Morphine Sulfate (Duramorph Pf) Confirm Administered Dose 1 mg .ROUTE .STK-MED ONE Stop: 02/11/18 07:25 Octyl Cyanoacrylate (Dermabond Advance) Confirm Administered Dose 1 applic .ROUTE .STK-MED ONE Stop: 02/11/18 07:19 Ondansetron HCl (Zofran) Confirm Administered Dose 4 mg .ROUTE .STK-MED ONE Stop: 02/11/18 07:24 Oxytocin (Pitocin) Confirm Administered Dose 20 unit .ROUTE .STK-MED ONE Stop: 02/11/18 08:51 Phenylephrine HCl (Phenylephrine In Ns 100 Mcg/Ml) Confirm Administered Dose 1 mg .ROUTE .STK-MED ONE Stop: 02/11/18 08:15 Sodium Chloride (Saline Flush) 10 ml FLUSH ASDIRECTED PRN PRN Reason: Keep Vein Open Sodium Chloride (Saline Flush) 2.5 ml FLUSH ASDIRECTED PRN PRN Reason: Keep Vein Open - My Orders Last 24 Hours: My Active Orders 02/11/18 21:00 Enoxaparin [Lovenox] 40 mg SUBCUT Q24H FLUoxetine [PROzac] 10 mg PO BEDTIME 02/11/18 Dinner Regular Diet [DIET] - Plan Plan:: Patient was seen and examined by me and I agree with above. She will be under Dr. Abreu's care in my absence. Anticipate discharge in am.
[2018-02-12] MEDS: Prenatal Multivitamin and Multimineral with Iron Tab PO SCH (09:27)
[2018-02-12] MEDS: Docusate Sodium 100 MG Cap PO SCH ×2 (09:27→20:38)
[2018-02-12] MEDS: oxyCODONE 5 MG Tab PO PRN ×3 (17:59→23:05)
[2018-02-12] MEDS: Enoxaparin 40 MG/0.4 ML Syringe SUBCUT SCH (20:39)
[2018-02-13] MEDS: Acetaminophen/oxyCODONE 325-5 MG Tab PO PRN ×3 (02:31→11:25)
[2018-02-13] MEDS: oxyCODONE 5 MG Tab PO PRN (04:17)
--- NOTE | 2018-02-13 07:16 | PCM.PNPP ---
<Mahnaz Lynch - Last Filed: 02/13/18 07:03> - General Info Date of Service: 02/13/18 Admission Dx/Problem (Free Text): RLTCS with bilateral salpingectomy Subjective Update: Patient is doing well. Pain is controlled with medication. Lochia - WNL. Attempting and supplementing with formula. Tolerating food with no n/v. Urinating. No bowel movement since surgery, but flatus is present. Ambulating. Anticipate discharge today. Functional Status: Reports: Pain Controlled, Tolerating Diet, Ambulating, Urinating - Review of Systems General: Denies: Fever, Chills HEENT: Denies: Headaches Pulmonary: Denies: Shortness of Breath, Pleuritic Chest Pain Cardiovascular: Denies: Chest Pain, Palpitations, Lightheadedness Gastrointestinal: Reports: Flatus. Denies: Nausea, Vomiting - General Info Date of Service: 02/13/18 - Patient Data Vital Signs - Most Recent: Last Vital Signs Temp 36.8 C 02/12/18 23:31 Pulse 79 02/12/18 23:31 Resp 16 02/12/18 23:31 BP 117/77 02/12/18 23:31 Pulse Ox 98 02/12/18 23:31 Weight - Most Recent: 127.913 kg Med Orders - Current: Current Medications Bisacodyl (Dulcolax) 10 mg RECTAL .ONCE PRN PRN Reason: Constipation Diphenhydramine HCl (Benadryl) 25 mg IVPUSH Q6H PRN PRN Reason: Itching or Nausea Last Admin: 02/11/18 09:34 Dose: 25 mg Docusate Sodium (Colace) 100 mg PO BID [facility] Last Admin: 02/12/18 20:38 Dose: 100 mg Emollient Ointment (Lansinoh Hpa) 0 gm TOP ASDIRECTED PRN PRN Reason: Sore Nipples Last Admin: 02/12/18 20:49 Dose: 1 applicful Enoxaparin Sodium (Lovenox) 40 mg SUBCUT Q24H [facility] Last Admin: 02/12/18 20:39 Dose: 40 mg Fluoxetine HCl (Prozac) 10 mg PO BEDTIME [facility] Last Admin: 02/12/18 20:38 Dose: 10 mg Lactated Ringer's (Ringers, Lactated) 1,000 mls @ 125 mls/hr IV ASDIRECTED [facility] Last Admin: 02/11/18 12:25 Dose: 125 mls/hr Ibuprofen (Motrin) 800 mg PO Q8H PRN PRN Reason: Pain Last Admin: 02/12/18 07:33 Dose: 800 mg Methylergonovine Maleate (Methergine) 0.2 mg IM .ONCE PRN PRN Reason: Excessive Vaginal Bleeding Ondansetron HCl (Zofran) 4 mg IV Q4H PRN PRN Reason: Nausea/Vomiting Oxycodone HCl (Oxycodone) 5 mg PO Q3H PRN PRN Reason: Breakthrough Pain Last Admin: 02/13/18 04:17 Dose: 5 mg Oxycodone/Acetaminophen (Percocet 325-5 Mg) 1 tab PO Q4H PRN PRN Reason: Pain (moderate 4-6) Last Admin: 02/12/18 07:35 Dose: 1 tab Oxycodone/Acetaminophen (Percocet 325-5 Mg) 2 tab PO Q4H PRN PRN Reason: Pain (moderate 4-6) Last Admin: 02/13/18 06:08 Dose: 2 tab Prenat Multivit/[place]/Iron/Folic Ac ( Mtr) 1 each PO DAILY [facility] Last Admin: 02/12/18 09:27 Dose: 1 each Discontinued Medications Cefazolin Sodium/Dextrose (Ancef) Confirm Administered Dose 2 gm IV .STK-MED ONE Stop: 02/11/18 07:25 Citric Acid/Sodium Citrate (Bicitra Solution) 30 ml PO ONETIME ONE Stop: 02/11/18 06:16 Last Admin: 02/11/18 07:49 Dose: 30 ml Diphenhydramine HCl (Benadryl) 25 mg IVPUSH Q4H PRN PRN Reason: Itching Stop: 02/12/18 18:20 Ephedrine Sulfate (Ephedrine Sulfate) Confirm Administered Dose 50 mg .ROUTE .STK-MED ONE Stop: 02/11/18 08:15 Cefazolin Sodium/Dextrose 2 gm (/ Premix) 50 mls @ 100 mls/hr IV ONETIME ONE Stop: 02/11/18 06:38 Last Admin: 02/11/18 10:22 Dose: Not Given Lactated Ringer's (Ringers, Lactated) 1,000 mls @ 500 mls/hr IV .BOLUS [facility] Last Admin: 02/11/18 07:25 Dose: 500 mls/hr Oxytocin/Sodium Chloride (Oxytocin 30 Unit/500 Ml-Ns) 30 unit in 500 mls @ 250 mls/hr IV TITRATE DANAY Oxytocin/Sodium Chloride (Oxytocin 30 Unit/500 Ml-Ns) Confirm Administered Dose 30 unit in 500 mls @ as directed .ROUTE .STK-MED ONE Stop: 02/11/18 07:46 Last Admin: 02/11/18 10:22 Dose: Not Given Methylergonovine Maleate (Methergine) Confirm Administered Dose 0.2 mg .ROUTE .STK-MED ONE Stop: 02/11/18 08:20 Morphine Sulfate (Duramorph Pf) Confirm Administered Dose 1 mg .ROUTE .STK-MED ONE Stop: 02/11/18 07:25 Nalbuphine HCl (Nubain) 5 mg IVPUSH Q3H PRN PRN Reason: Pruritis Stop: 02/12/18 18:20 Last Admin: 02/11/18 19:56 Dose: 5 mg Naloxone HCl (Narcan) 0.1 mg IVPUSH ONETIME PRN PRN Reason: Respiratory Depression Stop: 02/12/18 18:20 Octyl Cyanoacrylate (Dermabond Advance) Confirm Administered Dose 1 applic .ROUTE .STK-MED ONE Stop: 02/11/18 07:19 Ondansetron HCl (Zofran) Confirm Administered Dose 4 mg .ROUTE .STK-MED ONE Stop: 02/11/18 07:24 Oxytocin (Pitocin) Confirm Administered Dose 20 unit .ROUTE .STK-MED ONE Stop: 02/11/18 08:51 Phenylephrine HCl (Phenylephrine In Ns 100 Mcg/Ml) Confirm Administered Dose 1 mg .ROUTE .STK-MED ONE Stop: 02/11/18 08:15 Sodium Chloride (Saline Flush) 10 ml FLUSH ASDIRECTED PRN PRN Reason: Keep Vein Open Sodium Chloride (Saline Flush) 2.5 ml FLUSH ASDIRECTED PRN PRN Reason: Keep Vein Open - Infant Interaction Infant Disposition, : [place] in Room with Family Infant Interaction: Holding Feeding: Attempted ; Nursed Fair/Poor Support Person: - Recovery Exam Fundal Tone: Firm Fundal Level: 1 Fingerbreadths Below Umbilicus Fundal Placement: Midline Lochia Amount: Scant Lochia Color: Rubra/Red Episiotomy/Laceration: None Bladder Status: Voiding Urinary Elimination: Voided - Exam General: Alert, Oriented, No Acute Distress Lungs: Clear to Auscultation, Normal Respiratory Effort Cardiovascular: Regular Rate, Regular Rhythm GI/Abdominal Exam: Soft, Non-Tender Extremities: Pedal Edema (1+) Skin: Warm, Dry, Intact Wound/Incisions: Healing Well Psy/Mental Status: Alert - Problem List & Annotations (1) delivery delivered SNOMED Code(s): 666566898 Code(s): O82 - ENCOUNTER FOR DELIVERY WITHOUT INDICATION Status: Acute Current Visit: Yes - Assessment Assessment:: POD#2 s/p RLTCS with bilateral salpingectomy. Stable. Anticipate discharge today. - Plan Plan:: Reviewed discharge instructions. Continue PNV while . Pelvic rest for 6 weeks. Take OTC tylenol/ibuprofen as needed for pain. Call if fever greater than 101 or bleeding through a heavy pad in an hour. Follow-up appointments in 2 and 6 weeks. Post- depression symptoms reviewed. Patient has a history of depression and is currently on fluoxetine 10 mg. Lovenox will be discontinued, may continue on baby aspirin daily. <Karla Abreu - Last Filed: 02/13/18 07:25> - Patient Data Vital Signs - Most Recent: Last Vital Signs Temp 36.8 C 02/12/18 23:31 Pulse 79 02/12/18 23:31 Resp 16 02/12/18 23:31 BP 117/77 02/12/18 23:31 Pulse Ox 98 02/12/18 23:31 Med Orders - Current: Current Medications Bisacodyl (Dulcolax) 10 mg RECTAL .ONCE PRN PRN Reason: Constipation Diphenhydramine HCl (Benadryl) 25 mg IVPUSH Q6H PRN PRN Reason: Itching or Nausea Last Admin: 02/11/18 09:34 Dose: 25 mg Docusate Sodium (Colace) 100 mg PO BID [facility] Last Admin: 02/12/18 20:38 Dose: 100 mg Emollient Ointment (Lansinoh Hpa) 0 gm TOP ASDIRECTED PRN PRN Reason: Sore Nipples Last Admin: 02/12/18 20:49 Dose: 1 applicful Enoxaparin Sodium (Lovenox) 40 mg SUBCUT Q24H [facility] Last Admin: 02/12/18 20:39 Dose: 40 mg Fluoxetine HCl (Prozac) 10 mg PO BEDTIME [facility] Last Admin: 02/12/18 20:38 Dose: 10 mg Lactated Ringer's (Ringers, Lactated) 1,000 mls @ 125 mls/hr IV ASDIRECTED [facility] Last Admin: 02/11/18 12:25 Dose: 125 mls/hr Ibuprofen (Motrin) 800 mg PO Q8H PRN PRN Reason: Pain Last Admin: 02/12/18 07:33 Dose: 800 mg Methylergonovine Maleate (Methergine) 0.2 mg IM .ONCE PRN PRN Reason: Excessive Vaginal Bleeding Ondansetron HCl (Zofran) 4 mg IV Q4H PRN PRN Reason: Nausea/Vomiting Oxycodone HCl (Oxycodone) 5 mg PO Q3H PRN PRN Reason: Breakthrough Pain Last Admin: 02/13/18 04:17 Dose: 5 mg Oxycodone/Acetaminophen (Percocet 325-5 Mg) 1 tab PO Q4H PRN PRN Reason: Pain (moderate 4-6) Last Admin: 02/12/18 07:35 Dose: 1 tab Oxycodone/Acetaminophen (Percocet 325-5 Mg) 2 tab PO Q4H PRN PRN Reason: Pain (moderate 4-6) Last Admin: 02/13/18 06:08 Dose: 2 tab Prenat Multivit/[place]/Iron/Folic Ac ( Mtr) 1 each PO DAILY [facility] Last Admin: 02/12/18 09:27 Dose: 1 each Discontinued Medications Cefazolin Sodium/Dextrose (Ancef) Confirm Administered Dose 2 gm IV .STK-MED ONE Stop: 02/11/18 07:25 Citric Acid/Sodium Citrate (Bicitra Solution) 30 ml PO ONETIME ONE Stop: 02/11/18 06:16 Last Admin: 02/11/18 07:49 Dose: 30 ml Diphenhydramine HCl (Benadryl) 25 mg IVPUSH Q4H PRN PRN Reason: Itching Stop: 02/12/18 18:20 Ephedrine Sulfate (Ephedrine Sulfate) Confirm Administered Dose 50 mg .ROUTE .STK-MED ONE Stop: 02/11/18 08:15 Cefazolin Sodium/Dextrose 2 gm (/ Premix) 50 mls @ 100 mls/hr IV ONETIME ONE Stop: 02/11/18 06:38 Last Admin: 02/11/18 10:22 Dose: Not Given Lactated Ringer's (Ringers, Lactated) 1,000 mls @ 500 mls/hr IV .BOLUS [facility]NAY Last Admin: 02/11/18 07:25 Dose: 500 mls/hr Oxytocin/Sodium Chloride (Oxytocin 30 Unit/500 Ml-Ns) 30 unit in 500 mls @ 250 mls/hr IV TITRATE [facility] Oxytocin/Sodium Chloride (Oxytocin 30 Unit/500 Ml-Ns) Confirm Administered Dose 30 unit in 500 mls @ as directed .ROUTE .STK-MED ONE Stop: 02/11/18 07:46 Last Admin: 02/11/18 10:22 Dose: Not Given Methylergonovine Maleate (Methergine) Confirm Administered Dose 0.2 mg .ROUTE .STK-MED ONE Stop: 02/11/18 08:20 Morphine Sulfate (Duramorph Pf) Confirm Administered Dose 1 mg .ROUTE .STK-MED ONE Stop: 02/11/18 07:25 Nalbuphine HCl (Nubain) 5 mg IVPUSH Q3H PRN PRN Reason: Pruritis Stop: 02/12/18 18:20 Last Admin: 02/11/18 19:56 Dose: 5 mg Naloxone HCl (Narcan) 0.1 mg IVPUSH ONETIME PRN PRN Reason: Respiratory Depression Stop: 02/12/18 18:20 Octyl Cyanoacrylate (Dermabond Advance) Confirm Administered Dose 1 applic .ROUTE .STK-MED ONE Stop: 02/11/18 07:19 Ondansetron HCl (Zofran) Confirm Administered Dose 4 mg .ROUTE .STK-MED ONE Stop: 02/11/18 07:24 Oxytocin (Pitocin) Confirm Administered Dose 20 unit .ROUTE .STK-MED ONE Stop: 02/11/18 08:51 Phenylephrine HCl (Phenylephrine In Ns 100 Mcg/Ml) Confirm Administered Dose 1 mg .ROUTE .STK-MED ONE Stop: 02/11/18 08:15 Sodium Chloride (Saline Flush) 10 ml FLUSH ASDIRECTED PRN PRN Reason: Keep Vein Open Sodium Chloride (Saline Flush) 2.5 ml FLUSH ASDIRECTED PRN PRN Reason: Keep Vein Open - Problem List & Annotations (1) delivery delivered SNOMED Code(s): 314985505 Code(s): O82 - ENCOUNTER FOR DELIVERY WITHOUT INDICATION Status: Acute Current Visit: Yes - Problem List Review Problem List Initiated/Reviewed/Updated: Yes - Plan Plan:: Patient seen and examined--agree with above. May discharge to home today.
[2018-02-13 07:50] VITALS: BP 103/70
[2018-02-13] MEDS: Docusate Sodium 100 MG Cap PO SCH (09:37)
[2018-02-13] MEDS: Prenatal Multivitamin and Multimineral with Iron Tab PO SCH (09:37)
== END 2018-02-13 12:00 | disposition home or self-care (01) | DRG 540 ==
LOC: MW.OB 05:33
PROVIDERS: ADMIT Obstetrics & Gynecology; ATTEND Obstetrics & Gynecology
PROC: 10D00Z1 Extraction of Products of Conception, Low, Open Approach (ICD-10-PCS; principal; 2018-02-11)
PROC: 0UT70ZZ Resection of Bilateral Fallopian Tubes, Open Approach (ICD-10-PCS; 2018-02-11)
DX: O34.211 Maternal care for low transverse scar from previous cesarean delivery (principal); Z3A.39 39 weeks gestation of pregnancy; Z37.0 Single live birth; Z30.2 Encounter for sterilization
CPT/HCPCS: 36415; 59025; 82803; 85014; 85018; 85027; 86850; 86900; 86901; A9270-GY; J0690; J1200; J1650; J2210; J2274; J2300; J2405; J2590; J7120

== ENCOUNTER 2025-09-25 06:12 | Day surgery (SDC) | payer OTHER ==
[2025-09-25] MEDS: Lactated Ringers 1,000 ML IV SCH (06:45)
[2025-09-25] MEDS ORDERED: Morphine 10 MG/ML SDV ONE (06:59)
[2025-09-25] MEDS ORDERED: dexmedeTOMIDine HCl 200 MCG/2 ML SDV ONE (06:59)
[2025-09-25] MEDS ORDERED: Dexamethasone 4 MG/ML 5 ML MDV ONE (06:59)
[2025-09-25] MEDS ORDERED: Ketamine HCL/NACL, ISO-OSM 50 MG/5 ML Syringe ONE (06:59)
[2025-09-25] MEDS ORDERED: fentaNYL 100 MCG/2 ML SDV ONE (06:59)
[2025-09-25] MEDS ORDERED: Ondansetron 4 MG/2 ML SDV ONE (06:59)
[2025-09-25] MEDS ORDERED: Magnesium Sulfate (4.06 MEQ/ML) 5 GM/10 ML SDV ONE (06:59)
[2025-09-25] MEDS ORDERED: Ropivacaine 0.5% 5 MG/ML 30 ML SDV ONE (07:02)
[2025-09-25] MEDS ORDERED: propofoL 1,000 MG/100 ML 100 ML ONE ×2 (07:02→08:23)
[2025-09-25] MEDS: Scopalamine 1mg/3day Transdermal Patch TRDERM PRN (07:17)
[2025-09-25] MEDS ORDERED: Naloxone 0.4 MG/ML SDV IVPUSH PRN (08:16)
[2025-09-25] MEDS ORDERED: fentaNYL 50 MCG/ML SDV IVPUSH PRN (08:16)
[2025-09-25] MEDS ORDERED: Ondansetron 4 MG/2 ML SDV IVPUSH PRN (08:16)
[2025-09-25] MEDS ORDERED: Albuterol 0.083% 2.5 MG/3 ML Neb Soln NEB PRN (08:16)
[2025-09-25 10:07] VITALS: BP 120/78; PULSE 53
== END 2025-09-25 10:50 | disposition home or self-care (01) ==
LOC: MW.SDS 06:12
PROVIDERS: ATTEND Obstetrics & Gynecology
DX: N85.8 Other specified noninflammatory disorders of uterus (principal); K21.9 Gastro-esophageal reflux disease without esophagitis; J45.909 Unspecified asthma, uncomplicated; E66.01 Morbid (severe) obesity due to excess calories; Z91.040 Latex allergy status; Z91.018 Allergy to other foods; Z88.1 Allergy status to other antibiotic agents; Z68.41 Body mass index [BMI] 40.0-44.9, adult; Z79.899 Other long term (current) drug therapy
CPT/HCPCS: 58563; A9270; C1729; J0665; J1100; J1596; J2003; J2272; J2704; J2795; J3010; J3475; J7120; J7999; 00952; 64488; J2371; J2405; J2765; J3490